=== PATIENT | female | born 1950 | race American Indian/Alaskan Native ===

== ENCOUNTER 2017-06-11 12:40 | Emergency (ER) | payer MEDICARE ==
--- NOTE | 2017-06-11 16:18 | Emergency Department Report ---
Chief Complaint: Arrhythmia/Palpitations Stated Complaint: HEART PROBELM Time Seen by Provider: 06/11/17 16:18 - HPI History of Present Illness: Patient here states that she is on 12 medication and feels that she does not need to take 12 medications. Patient says she was at her primary care doctor today to get regular checkup his name is Dr. Juma Wen and she told him that she wants to be off of her medications because she is taking too much. Patient said the doctor said that her heart rate was irregular and he referred her to land a heart and patient came to the emergency room instead because she did not get appointment wouldn't land hard. Patient says she feels fine. She does not have any chest pain, shortness of breath. She is not having any headache dizziness or blurred vision denies any nausea or vomiting and denies any numbness or tingling to her extremities. She says she does not know why her doctor wanted to have her seen a tank riveter because she just went for regular checkup. Her vital signs are stable in triage area. She is diabetic and she said her blood glucose was over 200 this morning .surgical history for hysterectomy. She take oral antidiabetic medication. Patient says she is stressed because she is taking care of her by herself has Alzheimer disease. Patient has a history of diabetes, hypertension, irregular heartbeat. - ROS Review of Systems: All systems are negative unless stated in HPI above - Exam Vital Signs: Vital Signs 06/11/17 14:49 Temperature 98 F Pulse Rate 104 H Respiratory 20 Rate Blood Pressure 151/79 O2 Sat by Pulse 97 Oximetry Physical Exam: Gen.: This is a 67-year-old female well-nourished well-developed in no acute distress. Cardiovascular: S1, S2, regular rate and rhythm. Patient with EKG showing normal sinus rhythm at 100. She has left ventricular hypertrophy MSE screening note: Focused history and physical exam performed. Due to findings the following was ordered:see mdm ED Medical Decision Making - Medical Decision Making MDM: Patient screened by provider in triage area. Appropriate protocol initiated and patient to be seen in main ED by Dr. BROCK Disposition for MSE Condition: Stable Referrals: PRIMARY CARE, [Primary Care Provider] - 3-5 Days
[2017-06-11 17:10] LABS: Basophils % (Auto) 1.1 % (0.0-1.8); Eosinophils % (Auto) 1.1 % (0.0-4.3); Hematocrit 41.4 % (30.3-42.9); Hemoglobin 14.3 gm/dl (10.1-14.3); Mean Corpuscular HGB Conc 35 % (30-34); Mean Corpuscular Hemoglobin 30 pg (28-32); Mean Corpuscular Volume 87 fl (79-97); Platelet Count 274 K/mm3 (140-440); Red Blood Count 4.78 M/mm3 (3.65-5.03); Red Cell Distribution Width 14.2 % (13.2-15.2); White Blood Count 8.1 K/mm3 (4.5-11.0)
[2017-06-11 17:41] LABS: Alanine Aminotransferase 11 units/L (7-56); Albumin 4.4 g/dL (3.9-5); Albumin/Globulin Ratio 1.3 %; Alkaline Phosphatase 100 units/L (35-129); Anion Gap 20 mmol/L; Blood Urea Nitrogen 14 mg/dL (7-17); Calcium 10.6 mg/dL (8.4-10.2); Carbon Dioxide 28 mmol/L (22-30); Chloride 95.5 mmol/L (98-107); Glucose 267 mg/dL (65-100); Sodium 139 mmol/L (137-145); Total Protein 7.8 g/dL (6.3-8.2)
[2017-06-11 22:48] VITALS: BP 184/103
--- NOTE | 2017-06-11 23:16 | Emergency Department Report ---
ED General Adult HPI - General Chief complaint: Arrhythmia/Palpitations Stated complaint: HEART PROBELM Time Seen by Provider: 06/11/17 16:18 Source: patient, RN notes reviewed Mode of arrival: Ambulatory Limitations: No Limitations - History of Present Illness Initial comments: This is a 67-year-old female, this patient is previously unknown to me. She presents to the ER with mild headache. The headache started 2 days ago. It is not sudden or thunderclap in nature. It did not reach maximal intensity within an hour. It is not the worse headache of her life. The patient denies temporal pain, visual change, and pain/discomfort with eating food. The patient further indicates that her outpatient primary care doctor referred her to a local cardiology group to follow-up for concern for intermittent arrhythmia. She denies chest pain, shortness of breath, nausea, vomiting, abdominal pain, along with decreased exercise tolerance. The patient seems quite preoccupied with the fact that she is currently on 12 prescription medications, and she also endorses that she feels sometimes overwhelmed taking care of her family member who has dementia/Alzheimer's. However, she reports that she feels "fine." No exacerbating or relieving factors. Consistency: intermittent Improves with: none Worsens with: none Associated Symptoms: denies other symptoms, headaches - Related Data Home Medications Medication Instructions Recorded Confirmed Last Taken Omeprazole [First-Omeprazole] 40 mg PO DAILY 06/04/13 04/02/15 04/01/15 Potassium 99 mg PO QDAY 06/04/13 04/02/15 04/01/15 prednisoLONE [Prednisolone] 5 ml PO QDAY 06/04/13 04/02/15 04/01/15 Amlodipine Besylate/Benazepril 1 each PO QDAY 04/02/15 04/02/15 04/01/15 [Lotrel 10-40 mg] Carvedilol [Coreg] 25 mg PO BID 04/02/15 04/02/15 04/01/15 Diclofenac Sodium 75 mg PO DAILY 04/02/15 04/02/15 04/01/15 FLUoxetine HCL [FLUoxetine] 10 mg PO DAILY 04/02/15 04/02/15 04/01/15 Glimepiride [Amaryl] 4 mg PO QAM 04/02/15 04/02/15 04/01/15 Levothyroxine [Synthroid] 50 mcg PO DAILY 04/02/15 04/02/15 04/01/15 Losartan/Hydrochlorothiazide 1 each PO DAILY 04/02/15 04/02/15 04/01/15 [Hyzaar 100-25 Tablet] metFORMIN [Glucophage] 850 mg PO BID 04/02/15 04/02/15 04/01/15 Allergies Allergy/AdvReac Type Severity Reaction Status Date / Time No Known Allergies Allergy Unverified 04/02/15 05:07 ED Review of Systems ROS: Stated complaint: HEART PROBELM Other details as noted in HPI Constitutional: denies: fever Eyes: denies: vision change ENT: denies: epistaxis Respiratory: denies: cough Cardiovascular: palpitations Gastrointestinal: denies: vomiting Genitourinary: denies: dysuria Musculoskeletal: denies: back pain Skin: denies: lesions Neurological: as per HPI Psychiatric: anxiety ED Past Medical Hx - Past Medical History Previous Medical History?: Yes Hx Hypertension: Yes Hx Diabetes: Yes Additional medical history: heart arrhythmia - Surgical History Past Surgical History?: Yes Additional Surgical History: hysterectomy - Social History Smoking Status: Never Smoker Substance Use Type: Prescribed - Medications Home Medications: Home Medications Medication Instructions Recorded Confirmed Last Taken Type Omeprazole [First-Omeprazole] 40 mg PO DAILY 06/04/13 04/02/15 04/01/15 History Potassium 99 mg PO QDAY 06/04/13 04/02/15 04/01/15 History prednisoLONE [Prednisolone] 5 ml PO QDAY 06/04/13 04/02/15 04/01/15 History Amlodipine Besylate/Benazepril 1 each PO QDAY 04/02/15 04/02/15 04/01/15 History [Lotrel 10-40 mg] Carvedilol [Coreg] 25 mg PO BID 04/02/15 04/02/15 04/01/15 History Diclofenac Sodium 75 mg PO DAILY 04/02/15 04/02/15 04/01/15 History FLUoxetine HCL [FLUoxetine] 10 mg PO DAILY 04/02/15 04/02/15 04/01/15 History Glimepiride [Amaryl] 4 mg PO QAM 04/02/15 04/02/15 04/01/15 History Levothyroxine [Synthroid] 50 mcg PO DAILY 04/02/15 04/02/15 04/01/15 History Losartan/Hydrochlorothiazide 1 each PO DAILY 04/02/15 04/02/15 04/01/15 History [Hyzaar 100-25 Tablet] metFORMIN [Glucophage] 850 mg PO BID 04/02/15 04/02/15 04/01/15 History ED Physical Exam - General Limitations: No Limitations General appearance: alert, in no apparent distress - Head Head exam: Present: atraumatic, normocephalic - Eye Eye exam: Present: normal appearance, PERRL, EOMI, other (visual acuity intact to finger counting, color perception, reading at a close distance). Absent: nystagmus - ENT ENT exam: Present: normal exam, normal orophraynx, mucous membranes moist, normal external ear exam - Neck Neck exam: Present: normal inspection, full ROM. Absent: tenderness, meningismus - Respiratory Respiratory exam: Present: normal lung sounds bilaterally. Absent: respiratory distress, wheezes, rales, rhonchi, stridor, chest wall tenderness, accessory muscle use, decreased breath sounds, prolonged expiratory - Cardiovascular Cardiovascular Exam: Present: regular rate, normal rhythm, normal heart sounds. Absent: bradycardia, tachycardia, irregular rhythm, systolic murmur, diastolic murmur, rubs, gallop - GI/Abdominal GI/Abdominal exam: Present: soft, normal bowel sounds. Absent: distended, tenderness, guarding, rebound, rigid, pulsatile mass - Extremities Exam Extremities exam: Present: normal inspection, full ROM, normal capillary refill. Absent: tenderness, pedal edema, joint swelling, calf tenderness - Back Exam Back exam: Present: normal inspection, full ROM, CVA tenderness (L). Absent: tenderness, CVA tenderness (R), muscle spasm, paraspinal tenderness, vertebral tenderness - Neurological Exam Neurological exam: Present: alert, oriented X3, normal gait, other (Extraocular movements intact. Tongue midline. No facial droop. Facial sensation intact to light touch in the V1, V2, V3 distribution bilaterally. 5 and 5 strength in 4 extremities.. Sensation is intact to light touch in 4 extremities.). Absent : motor sensory deficit - Psychiatric Psychiatric exam: Present: anxious - Skin Skin exam: Present: warm, dry, intact, normal color. Absent: rash ED Course Vital Signs 06/11/17 06/11/17 14:49 22:47 Temperature 98 F Pulse Rate 104 H 94 H Respiratory 20 18 Rate Blood Pressure 151/79 Blood Pressure 184/103 [Right] O2 Sat by Pulse 97 94 Oximetry ED Medical Decision Making - Lab Data Result diagrams: 06/11/17 16:57 06/11/17 16:57 Vital Signs 06/11/17 06/11/17 14:49 22:47 Temperature 98 F Pulse Rate 104 H 94 H Respiratory 20 18 Rate Blood Pressure 151/79 Blood Pressure 184/103 [Right] O2 Sat by Pulse 97 94 Oximetry Lab Results 06/11/17 06/11/17 06/11/17 Range/Units 16:57 16:57 19:49 WBC 8.1 (4.5-11.0) K/mm3 RBC 4.78 (3.65-5.03) M/mm3 Hgb 14.3 (10.1-14.3) gm/dl Hct 41.4 (30.3-42.9) % MCV 87 (79-97) fl MCH 30 (28-32) pg MCHC 35 H (30-34) % RDW 14.2 (13.2-15.2) % Plt Count 274 (140-440) K/mm3 Lymph % (Auto) 32.3 (13.4-35.0) % [place] % (Auto) 5.6 (0.0-7.3) % Eos % (Auto) 1.1 (0.0-4.3) % Baso % (Auto) 1.1 (0.0-1.8) % Lymph # 2.6 (1.2-5.4) K/mm3 [place] # 0.5 (0.0-0.8) K/mm3 Eos # 0.1 (0.0-0.4) K/mm3 Baso # 0.1 (0.0-0.1) K/mm3 Seg Neutrophils % 59.9 (40.0-70.0) % Seg Neutrophils # 4.8 (1.8-7.7) K/mm3 Sodium 139 (137-145) mmol/L Potassium 4.0 (3.6-5.0) mmol/L Chloride 95.5 L (98-107) mmol/L Carbon Dioxide 28 (22-30) mmol/L Anion Gap 20 mmol/L BUN 14 (7-17) mg/dL Creatinine 0.8 (0.7-1.2) mg/dL Estimated GFR > 60 ml/min BUN/Creatinine Ratio 17.50 % Glucose 267 H (65-100) mg/dL POC Glucose 262 H (70-105) Calcium 10.6 H (8.4-10.2) mg/dL Total Bilirubin 0.70 (0.1-1.2) mg/dL AST 14 (5-40) units/L ALT 11 (7-56) units/L Alkaline Phosphatase 100 (35-129) units/L Total Protein 7.8 (6.3-8.2) g/dL Albumin 4.4 (3.9-5) g/dL Albumin/Globulin Ratio 1.3 % - EKG Data 06/12/17 00:07 Sinus tachycardia, 100 bpm, high left ventricular voltage, left ventricular hypertrophy, QTC 469 ms. Not having chest pain, not morphologically consistent with STEMI - Radiology Data Radiology results: image reviewed interpreted by me: X-ray the chest is negative for acute disease, incidental cardiomegaly is noted - Medical Decision Making Differential diagnosis: Hyperglycemia, hypertension, anxiety, reassurance Assessment and plan: 67-year-old female with no acute complaints, incidental hypertension and hyperglycemia. She is afebrile, with reassuring vital signs with the exception of hypertension, has a GCS of 15, with an NIH score of 0, her history and physical do not corroborate any emergent diagnosis her condition at this time, the patient is medically suitable to follow-up in outpatient primary care doctor or roasterman. General precautions are reviewed. Critical care attestation.: If time is entered above; I have spent that time in minutes in the direct care of this critically ill patient, excluding procedure time. ED Disposition Clinical Impression: Hyperglycemia, Elevated blood pressure reading Disposition: DC-01 TO HOME OR SELFCARE Is pt being admited?: No Does the pt Need Aspirin: No Condition: Good Additional Instructions: Continue current outpatient medications. Follow up with her primary care doctor within the next month. Follow up with cardiology as recommended within the next 2-3 weeks. Please note that blood pressure and blood sugar were elevated, and these should be followed up by her primary care doctor as recommended. Return to the ER Runaway with fevers, chills, chest pain, shortness of breath, intractable nausea or vomiting, confusion, inability to tolerate liquid feeds, new, worsening or different symptoms. Referrals: PRIMARY CAREMD [Primary Care Provider] - 3-5 Days [facility] [Provider Group] - 3-5 Days
--- NOTE | 2017-06-12 07:31 | XRay Report ---
CHEST XRAY, 2 VIEWS: History: Chest pain. Findings: There is mild cardiomegaly. Pulmonary vessels are within normal limits. The lungs are clear and fully expanded. No infiltrate, pleural effusion or pneumothorax. Normal thoracic cage. IMPRESSION: Mild cardiomegaly.
== END 2017-06-11 23:36 | disposition home or self-care (01) ==
LOC: ED 12:40
DX: E11.65 Type 2 diabetes mellitus with hyperglycemia (principal); I10 Essential (primary) hypertension; I49.9 Cardiac arrhythmia, unspecified
CPT/HCPCS: 36415; 71020; 80053; 82962; 85025; 93005; 93010